=== PATIENT | female | born 1930 | race Asian ===

== ENCOUNTER → 2016-06-27 | Outpatient (CLI) | payer MEDICARE ==
[~2016-06-27] MED LIST: CALC-173 PO; CALC-451 PO; CHOL100018 PO; MULT-717 PO; VIT1TABL32 PO
== END | disposition home or self-care (01) ==
LOC: ROC 13:40
PROVIDERS: ATTEND Radiology Radiation Oncology
DX: Z85.3 Personal history of malignant neoplasm of breast (principal)
CPT/HCPCS: G0463

== ENCOUNTER 2016-07-03 14:13 | Day surgery (SDC) | payer MEDICARE ==
[~2016-07-03] VITALS: Ht 149.9 cm; Wt 50.0 kg
[2016-07-03] MEDS ORDERED: LACTATED RINGERS 1,000 ML IV SCH (14:48)
[2016-07-03 14:50] VITALS: BP 162/70
[2016-07-03 14:51] VITALS: BP 162/70
[2016-07-03] MEDS ORDERED: MIDAZOLAM 1 MG/ML, 2ML ONE (14:54)
[2016-07-03] MEDS ORDERED: FENTANYL PF 100 MCG/2ML ONE (14:54)
[2016-07-03] MEDS ORDERED: PROPOFOL 10 MG/ML, 50ML ONE (16:24)
[2016-07-03] MEDS ORDERED: DEXAMETHASONE 4 MG/ML, 1ML ONE (16:24)
[2016-07-03] MEDS ORDERED: CEFAZOLIN 1,000 MG ONE (16:24)
[2016-07-03] MEDS ORDERED: PROPOFOL 10 MG/ML, 20ML ONE (16:24)
[2016-07-03] MEDS ORDERED: EPHEDRINE 50 MG/ML, 1ML ONE (16:24)
[2016-07-03] MEDS ORDERED: ONDANSETRON 2MG/ML, 2ML ONE (16:24)
[2016-07-03] MEDS ORDERED: BUPIVACAINE/PF-EPI 0.5% 1:200K IM ONE (16:39)
[2016-07-03] MEDS ORDERED: OXYcodone 5 MG/5 ML ORAL.SOL UDC PO PRN (17:00)
[2016-07-03] MEDS ORDERED: ACETAMINOPHEN 325 MG TABLET PO PRN (17:00)
[2016-07-03] MEDS ORDERED: FENTANYL PF 100 MCG/2ML IV PRN (17:00)
[2016-07-03] MEDS ORDERED: PROMETHAZINE 25 MG/ML, 1ML IV PRN (17:00)
[2016-07-03] MEDS ORDERED: hydrALAzine 20 MG/ML, 1ML IV PRN (17:00)
[2016-07-03] MEDS ORDERED: morphine SULFATE 10 MG/ML, 1ML IV PRN (17:00)
== END 2016-07-03 19:10 ==
LOC: OR 14:13
PROVIDERS: ATTEND Surgery
DX: C50.912 Malignant neoplasm of unspecified site of left female breast (principal); Z87.891 Personal history of nicotine dependence; Z72.89 Other problems related to lifestyle
CPT/HCPCS: 19120; 88305; J0690; J1100; J2405; J2704; J3010; J7120; J2250

== ENCOUNTER → 2016-07-28 | Outpatient (CLI) | payer MEDICARE | END | disposition home or self-care (01) | LOC: CFH 11:10 | PROVIDERS: ATTEND Internal Medicine Hematology & Oncology | DX: Z13.820 Encounter for screening for osteoporosis (principal); C50.919 Malignant neoplasm of unspecified site of unspecified female breast; M81.0 Age-related osteoporosis without current pathological fracture | CPT/HCPCS: 77080 ==

== ENCOUNTER → 2018-01-27 | Outpatient (CLI) | payer MEDICARE ==
[~2018-01-27] MED LIST changes: +CHOL100012 PO; -CHOL100018 PO
== END | disposition home or self-care (01) ==
LOC: ROC 08:08
PROVIDERS: ATTEND Radiology Radiation Oncology
DX: C50.412 Malignant neoplasm of upper-outer quadrant of left female breast (principal)
CPT/HCPCS: G0463

== ENCOUNTER → 2018-07-29 | Outpatient (CLI) | payer MEDICARE | END | disposition home or self-care (01) | LOC: ROC 08:28 | PROVIDERS: ATTEND Radiology Radiation Oncology | DX: Z08 Encounter for follow-up examination after completed treatment for malignant neoplasm (principal); C50.412 Malignant neoplasm of upper-outer quadrant of left female breast | CPT/HCPCS: G0463 ==

== ENCOUNTER → 2018-10-15 | Outpatient (CLI) | payer MEDICARE | END | disposition home or self-care (01) | LOC: ROC 08:15 | PROVIDERS: ATTEND Radiology Radiation Oncology | DX: Z08 Encounter for follow-up examination after completed treatment for malignant neoplasm (principal); I10 Essential (primary) hypertension; R00.2 Palpitations; Z85.3 Personal history of malignant neoplasm of breast; Z88.1 Allergy status to other antibiotic agents | CPT/HCPCS: G0463 ==